=== PATIENT | female | born 1970 | race Caucasian/White ===

== ENCOUNTER 2019-05-22 10:17 | Emergency (ER) | payer MEDICAID ==
[~2019-05-22] VITALS: Ht 154.9 cm; Wt 58.5 kg
[2019-05-22 11:42] VITALS: BP 139/57
== END 2019-05-22 11:41 | disposition home or self-care (01) ==
LOC: ER 10:17
DX: L30.9 Dermatitis, unspecified (principal); Z88.0 Allergy status to penicillin
CPT/HCPCS: 99282